=== PATIENT | male | born 1965 | race Caucasian/White ===

== ENCOUNTER 2016-07-10 22:05 | Emergency (ER) | payer BC ==
--- NOTE | 2016-07-10 23:27 | XR ---
EXAMINATION TYPE: XR chest 2V DATE OF EXAM: 07/10/2016 11:22 PM COMPARISON: 03/21/2014 HISTORY: Right-sided pain TECHNIQUE: Frontal and lateral views of the chest are obtained. FINDINGS: Heart and mediastinum are normal. Lungs are clear. Costophrenic angles are clear. There ar e no hilar masses. The bony thorax is intact. IMPRESSION: No active cardiopulmonary disease. Normal heart. No change.
[2016-07-10 23:28] VITALS: BP 121/71
--- NOTE | 2016-07-10 23:29 | XR ---
EXAMINATION TYPE: XR ribs RT DATE OF EXAM: 07/10/2016 11:22 PM COMPARISON: NONE HISTORY: Right-sided pain TECHNIQUE: 4 views FINDINGS: I see no pleural effusion or pneumothorax. Right lung is clear of infiltrate. There is no s ign of a rib fracture. IMPRESSION: Negative right rib exam.
[2016-07-10] MEDS ORDERED: HYDROcodone/APAP 10-325MG 1 EACH TAB PO ONE (23:45)
[2016-07-10 23:52] VITALS: PULSE 65; RESP 18; TEMP 97.1
--- NOTE | 2016-07-10 23:57 | ED ---
Chest Pain HPI - General Chief Complaint: Chest Pain Stated Complaint: Rib Pain Time Seen by Provider: 07/10/16 23:07 Source: patient, RN notes reviewed, old records reviewed Mode of arrival: ambulatory Limitations: no limitations - History of Present Illness Initial Comments: Patient is a 51 year old male with chief complaint of right sided rib pain for 3 days, but it has became increasingly worse today. Patient reports the pain occurs with certain movements and is reproducible with palpation. Patient reports he was diagnosed with bronchitis and completed antibiotics 2 weeks ago. PAtient states he still has a mild cough, which worsens the rib pain. He denies any fever, chills, nausea, vomiting, abdominal pain, shortness of breath, diaphoresis. - Related Data Home Medications Medication Instructions Recorded Confirmed Acetaminophen [Tylenol] 325 - 650 mg PO Q6H PRN 07/10/16 07/10/16 Gemfibrozil [Lopid] 600 mg PO AC-BID 07/10/16 07/10/16 Levothyroxine Sodium [Synthroid] 125 mcg PO DAILY 07/10/16 07/10/16 Previous Rx's Medication Instructions Recorded Acetaminophen-Codeine 300-30mg 1 tab PO Q4H PRN #15 tablet 07/10/16 [Tylenol #3] Promethazine 6.25MG/5Ml [Phenergan 5 ml PO TID #60 ml 07/11/16 Syrup] Allergies Allergy/AdvReac Type Severity Reaction Status Date / Time No Known Allergies Allergy Verified 07/10/16 23:20 Review of Systems ROS Statement: Those systems with pertinent positive or pertinent negative responses have been documented in the HPI. ROS Other: All systems not noted in ROS Statement are negative. Past Medical History Past Medical History: Hyperlipidemia, Thyroid Disorder Additional Past Medical History / Comment(s): hypothyroid History of Any Multi-Drug Resistant Organisms: None Reported Past Surgical History: Tonsillectomy Additional Past Surgical History / Comment(s): skin cancer Past Psychological History: No Psychological Hx Reported Smoking Status: Never smoker Past Alcohol Use History: None Reported Past Drug Use History: None Reported General Exam Limitations: no limitations General appearance: alert, in no apparent distress Head exam: Present: atraumatic, normocephalic, normal inspection Eye exam: Present: normal appearance, PERRL, EOMI. Absent: scleral icterus, conjunctival injection, periorbital swelling ENT exam: Present: normal exam, mucous membranes moist Neck exam: Present: normal inspection. Absent: tenderness, meningismus, lymphadenopathy Respiratory exam: Present: normal lung sounds bilaterally, chest wall tenderness (right rib chest wall tenderness. Pain is reproducible. ). Absent: respiratory distress, wheezes, rales, rhonchi, stridor Cardiovascular Exam: Present: regular rate, normal rhythm, normal heart sounds. Absent: systolic murmur, diastolic murmur, rubs, gallop, clicks GI/Abdominal exam: Present: soft Extremities exam: Present: normal inspection, full ROM, normal capillary refill. Absent: tenderness, pedal edema, joint swelling, calf tenderness Back exam: Present: normal inspection Neurological exam: Present: alert, oriented X3, CN II-XII intact Psychiatric exam: Present: normal affect, normal mood Skin exam: Present: warm, dry, intact, normal color. Absent: rash Course Vital Signs 07/10/16 07/10/16 07/10/16 22:27 23:26 23:51 Temperature 98.0 F 97.1 F L Pulse Rate 79 64 65 Respiratory 18 20 18 Rate Blood Pressure 136/90 121/71 121/71 O2 Sat by Pulse 96 95 96 Oximetry Chest Pain MDM - MDM Patient is a 51 year old male with right rib pain that is reproducible. He has had a non productive cough as well. CXR is negative for pneumonia, and rib xray shows no fracture. Patient given pain medication and cough syrup. I disucssed that continuing antibiotics is not necessary at this time, I offered steroid, however patient stated he developed thrush after the steroid medication and refuses. Patient advised to follow up with PCP. Patient understands treatment plan and will comply. Disposition Clinical Impression: Rib pain on right side Disposition: HOME SELF-CARE Condition: Good Instructions: Chest Wall Pain (ED) Additional Instructions: Patient advised to splint the right side of the chest wall whenever coughing. Patient advised to take medications as prescribed. Follow-up with primary care provider if symptoms continue to persist over the next 2-3 days. Return to the emergency department any signs or symptoms are occurring. Prescriptions: Acetaminophen-Codeine 300-30mg [Tylenol #3] 1 tab PO Q4H PRN #15 tablet PRN Reason: Pain Promethazine 6.25MG/5Ml [Phenergan Syrup] 5 ml PO TID #60 ml Referrals: Elvira Frankel MD [Primary Care Provider] - 1-2 days Time of Disposition: 23:57
[2016-07-11] MEDS ORDERED: ACET/COD 300 MG/30 MG STARTER PACK 6 TAB BTL PO STA (00:06)
== END 2016-07-11 00:29 | disposition home or self-care (01) ==
LOC: EC 22:05
DX: R07.81 Pleurodynia (principal); R05 Cough; E78.5 Hyperlipidemia, unspecified; E03.9 Hypothyroidism, unspecified; Z79.52 Long term (current) use of systemic steroids; Z79.899 Other long term (current) drug therapy; Z90.89 Acquired absence of other organs
CPT/HCPCS: 71020; 99285

== ENCOUNTER → 2016-07-16 | Outpatient (CLI) | payer BC ==
[2016-07-16 12:14] LABS: CH 32.2; CHCM 36.1; HCT 48.2 % (39.0-53.0); HDW 3.02; HGB 16.8 gm/dL (13.0-17.5); MCH 31.2 pg (25.0-35.0); MCHC 34.9 g/dL (31.0-37.0); MCV 89.5 fL (80.0-100.0); Mean Platelet Volume 7.9; RBC 5.39 m/uL (4.30-5.90); RDW 13.5 % (11.5-15.5)
[2016-07-16 12:24] LABS: Ionized Calcium 5.5 mg/dL (4.5-5.3)
[2016-07-16 12:32] LABS: ALT 37 U/L (21-72); AST 27 U/L (17-59); Alkaline Phosphatase 89 U/L (38-126); Anion Gap 10 mmol/L; Blood Urea Nitrogen 16 mg/dL (9-20); Calcium 10.1 mg/dL (8.4-10.2); Carbon Dioxide 30 mmol/L (22-30); Chloride 104 mmol/L (98-107); Cholesterol 155 mg/dL (<200); Glucose 103 mg/dL (74-99); HDL Cholesterol 26 mg/dL (40-60); Non-African American GFR(MDRD) >60 (>60 ml/min/1.73 sqM); Potassium 4.6 mmol/L (3.5-5.1); Sodium 144 mmol/L (137-145); Total Bilirubin 0.6 mg/dL (0.2-1.3); Total Protein 7.8 g/dL (6.3-8.2); Triglycerides 408 mg/dL (<150)
[2016-07-16 13:03] LABS: Prostate Specific Antigen 0.76 ng/mL (0.00-4.00)
== END ==
LOC: LABWHC1 11:51
PROVIDERS: ATTEND Internal Medicine
DX: Z00.00 Encounter for general adult medical examination without abnormal findings (principal); E78.00 Pure hypercholesterolemia, unspecified; R53.81 Other malaise; E83.52 Hypercalcemia; Z13.29 Encounter for screening for other suspected endocrine disorder
CPT/HCPCS: 36415; 80053; 80061; 82330; 83970; 84153; 84439; 84443; 85027

== ENCOUNTER → 2018-07-21 | Outpatient (CLI) | payer BC ==
--- NOTE | 2018-07-21 13:37 | XR ---
Lumbosacral spine HISTORY: Lipoma, palpable mass 5 views of the lumbosacral spine Lumbar vertebral bodies show preserved height, alignment, and bone mineralization. No evident spondyl olysis. Multilevel spondylosis is present. Loss of disc height present L5-S1, L4-5 and L1-2. Sclerosi s present in the posterior elements compatible with facet arthropathy. IMPRESSION: Degenerative disc disease and facet arthropathy.
== END | disposition home or self-care (01) ==
LOC: RADXRYALE 13:14
PROVIDERS: ATTEND Internal Medicine
DX: M51.37 Other intervertebral disc degeneration, lumbosacral region (principal); M46.87 Other specified inflammatory spondylopathies, lumbosacral region; D17.79 Benign lipomatous neoplasm of other sites
CPT/HCPCS: 72110

== ENCOUNTER → 2020-09-05 | Outpatient (CLI) | payer BC | END | disposition home or self-care (01) | LOC: LABWHC1 16:26 | PROVIDERS: ATTEND Internal Medicine | DX: Z20.822 Contact with and (suspected) exposure to COVID-19 (principal); R05 Cough; R09.81 Nasal congestion | CPT/HCPCS: U0003; C9803; U0005 ==

== ENCOUNTER 2022-01-24 13:01 | Emergency (ER) | payer BC ==
--- NOTE | 2022-01-24 15:17 | ED ---
General Adult HPI - General Chief complaint: Skin/Abscess/Foreign Body Stated complaint: thrombosis Time Seen by Provider: 01/24/22 15:00 Source: patient, RN notes reviewed, old records reviewed Mode of arrival: ambulatory Limitations: no limitations - History of Present Illness Initial comments: This is a 57-year-old male presents emergency Department complaining that he has an external hemorrhoid and thinks it might be thrombosed would like us to evaluate him. Patient states he was seen by his primary medical care doctor and given suppositories and since yesterday when he started taking the suppositories the swelling is already gone down. Patient states he had a history of this 20 years ago and eventually did excise the thrombosed hemorrhoid. Patient denies any other symptoms at this time patient denies any bleeding. - Related Data Home Medications Medication Instructions Recorded Confirmed Acetaminophen [Tylenol] 325 - 650 mg PO Q6H PRN 07/10/16 07/10/16 Levothyroxine Sodium [Synthroid] 125 mcg PO DAILY 07/10/16 07/10/16 gemfibroziL [Lopid] 600 mg PO AC-BID 07/10/16 07/10/16 Previous Rx's Medication Instructions Recorded Acetaminophen-Codeine 300-30mg 1 tab PO Q4H PRN #15 tablet 07/10/16 [Tylenol #3] Promethazine 6.25MG/5Ml [Phenergan 5 ml PO TID #60 ml 07/11/16 Syrup] Allergies Allergy/AdvReac Type Severity Reaction Status Date / Time No Known Allergies Allergy Verified 01/24/22 14:14 Review of Systems ROS Statement: Those systems with pertinent positive or pertinent negative responses have been documented in the HPI. ROS Other: All systems not noted in ROS Statement are negative. Past Medical History Past Medical History: Hyperlipidemia, Thyroid Disorder Additional Past Medical History / Comment(s): hypothyroid History of Any Multi-Drug Resistant Organisms: None Reported Past Surgical History: Tonsillectomy Additional Past Surgical History / Comment(s): skin cancer Past Psychological History: No Psychological Hx Reported Smoking Status: Never smoker Past Alcohol Use History: None Reported Past Drug Use History: None Reported General Exam - General Exam Comments Initial Comments: GENERAL Patient is well-developed and well-nourished. Patient is in mild distress. EYES Patient's pupils are equal and round. Extraocular motion is intact SKIN Patient has an external hemorrhoid on the right side does not appear to be thrombosed at this time is soft and fluctuant. It is causing him pain when I palpated. NEURO The patient is alert and oriented 3 PYSCH Patient has normal interpersonal interactions. MUSCULOSKELETAL All 4 extremities have full range of motion Limitations: no limitations Course Vital Signs 01/24/22 14:12 Temperature 98.2 F Pulse Rate 68 Respiratory 20 Rate Blood Pressure 125/89 O2 Sat by Pulse 99 Oximetry Disposition Clinical Impression: External hemorrhoid Disposition: HOME SELF-CARE Instructions (If sedation given, give patient instructions): Hemorrhoids (ED) Additional Instructions: Patient should continue using his suppositories. Patient should take Motrin when necessary for pain. Patient should use witch joao for cleaning. patient should do sitz baths at least twice a day if not 3 times a day. Is patient prescribed a controlled substance at d/c from ED?: No Referrals: Elvira Frankel MD [Primary Care Provider] - 1-2 days Time of Disposition: 15:16
[2022-01-24 15:53] VITALS: BP 122/85; PULSE 67; RESP 18; TEMP 98.4
== END 2022-01-24 15:52 | disposition home or self-care (01) ==
LOC: EC 13:01
DX: K64.5 Perianal venous thrombosis (principal); E78.5 Hyperlipidemia, unspecified; E03.9 Hypothyroidism, unspecified; Z79.890 Hormone replacement therapy; Z79.899 Other long term (current) drug therapy
CPT/HCPCS: 99282

== ENCOUNTER → 2023-02-05 | Outpatient (CLI) | payer BC ==
--- NOTE | 2023-02-05 09:27 | XR ---
EXAMINATION TYPE: XR ankle complete LT DATE OF EXAM: 02/05/2023 COMPARISON: None HISTORY: Injury one month prior, pain TECHNIQUE: 3 view left ankle FINDINGS: The ankle mortise is intact. No acute fracture or dislocation is evident. No subacute fract ure evident. Soft tissues are normal. Follow-up can be performed as clinically indicated. IMPRESSION: 1. No acute osseous abnormality left ankle
--- NOTE | 2023-02-05 09:27 | XR ---
EXAMINATION TYPE: XR foot complete LT DATE OF EXAM: 02/05/2023 COMPARISON: None HISTORY: Injury, pain 1 month prior TECHNIQUE: 3 view left foot FINDINGS: No acute fracture or dislocation is evident. No osseous subacute osseous changes evident. S oft tissues are normal. No radiopaque foreign bodies evident. Follow-up can be performed as clinically indicated. IMPRESSION: 1. No acute osseous abnormality left foot
== END | disposition home or self-care (01) ==
LOC: RADXRYALE 08:56
PROVIDERS: ATTEND Internal Medicine
DX: M25.572 Pain in left ankle and joints of left foot (principal)